=== PATIENT | female | born 1985 | race Caucasian/White ===

== ENCOUNTER 2016-08-31 20:21 | Emergency (ER) | payer SELFPAY ==
[~2016-08-31 20:21] MED LIST: ACET500C5 PO; ONDA4TAB35 PO; PREN-39 PO
== END 2016-08-31 22:54 | disposition left against medical advice (07) ==
LOC: E/R 20:21
DX: Z53.21 Procedure and treatment not carried out due to patient leaving prior to being seen by health care provider (principal)